=== PATIENT | female | born 1940 | race Caucasian/White ===

== ENCOUNTER 2019-01-19 15:20 | Inpatient (IN) ==
[2019-01-19 17:09] LABS: Basophils % 0.5 % (0.0-0.8); Hematocrit 46.1 VOL% (35.7-47.0); Hemoglobin 15.4 GM/DL (12.0-16.0); Immature Granulocytes % 0.5 %; Immature Granulocytes Absolute 0.02 #; Lymphocytes # 0.4 10*3/uL (1.4-4.0); Lymphocytes % 9.9 % (21.3-54.2); Mean Corpuscular HGB Conc 33.4 GM/DL (32-36); Mean Corpuscular Volume 92.4 FL (87-102); Mean Platelet Volume 11.6 FL (9.6-12.0); Monocytes % 4.3 % (1.7-12.7); Neutrophils % 84.8 % (38.7-73.9); Platelet Count 120 T/CUMM (130-400); Red Blood Count 4.99 MC/CUMM (3.8-5.5); Red Cell Distribution Width 13.4 % (9.3-17.3); White Blood Count 3.8 T/CUMM (4-12)
[2019-01-19 17:31] LABS: Alanine Aminotransferase 96 U/L (13-56); Albumin 3.5 G/DL (3.4-5.0); Alkaline Phosphatase 134 U/L (45-117); Aspartate Amino Transferase 116 U/L (0-37); Blood Urea Nitrogen 61 MG/DL (7-18); Calcium 10.2 MG/DL (8.5-10.1); Glucose 263 MG/DL (74-106); Osmolality,Calculated 295.1 MOS/KG (273-304); Total Protein 7.4 G/DL (6.4-8.3)
[2019-01-19] MEDS ORDERED: SODIUM CHLORIDE 0.9% 500 ML IV STA (17:31)
[2019-01-19] MEDS ORDERED: ENOXAPARIN 80 MG/0.8 ML SYRINGE SUBCUT STA (17:55)
[2019-01-19] MEDS ORDERED: SODIUM CHLORIDE 0.9% 1,000 ML IV STA (17:55)
[2019-01-19] MEDS ORDERED: ASPIRIN CHEW 81 MG TABLET PO STA (17:55)
[2019-01-19] MEDS ORDERED: cefTRIAXone 1,000 MG in SODIUM CHLORIDE 0.9% 100 ML IV STA (17:56)
[2019-01-19] MEDS ORDERED: MAGNESIUM SULF RIDER 4 GM in PREMIX 1 EACH IV PRN (18:36)
[2019-01-19] MEDS ORDERED: INSULIN LISPRO 100 UNIT/ML SUBCUT ONE (18:36)
[2019-01-19] MEDS ORDERED: POTASSIUM CHLORIDE 20 MEQ TABLET PO PRN (18:36)
[2019-01-19] MEDS ORDERED: HEPARIN 5,000 UNIT/1 ML VIAL IV ONE (18:36)
[2019-01-19] MEDS ORDERED: NITROGLYCERIN SL 0.4 MG TABLET SL PRN (18:36)
[2019-01-19 18:43] LABS: PT Patient Result 11.1 SECS (9.6-12.2)
[2019-01-19 18:56] LABS: Apearance,Urine CLOUDY (Clear); Bacteria,Urine Moderate /HPF (Few); Bilirubin,Urine Negative (Negative); Blood, Urine Small mg/dL (Negative); Glucose,Urine (UA) Negative (Negative); Hyaline Casts,Urine 90 /LPF (0-3); Ketones,Urine Negative (Negative); Mucus,Urine Occasional /LPF (Occasional); Nitrite,Urine Negative (Negative); Protein,Urine 30 MG/DL; RBC,Urine 4 /HPF (0-4); Squamous Epithelial Cell,Urine Occasional /HPF (0-10); Urine Color Amber (Yellow); Urine Specific Gravity 1.017 (1.001-1.035); WBC,Urine 46 /HPF (0-6)
[2019-01-19] MEDS: INSULIN LISPRO 100 UNIT/ML SUBCUT SCH (21:46)
[2019-01-19] MEDS: SODIUM CHLORIDE 0.9% 1,000 ML IV SCH (22:13)
[2019-01-19] MEDS: ATORVASTATIN 20 MG TABLET PO SCH (22:14)
[2019-01-20 01:21] LABS: Basophils % 0.3 % (0.0-0.8); Eosinophils % 0.3 % (0.00-10.9); Hematocrit 37.3 VOL% (35.7-47.0); Hemoglobin 12.2 GM/DL (12.0-16.0); Immature Granulocytes % 0.5 %; Immature Granulocytes Absolute 0.02 #; Lymphocytes # 0.5 10*3/uL (1.4-4.0); Mean Corpuscular HGB Conc 32.7 GM/DL (32-36); Mean Corpuscular Volume 92.8 FL (87-102); Mean Platelet Volume 11.3 FL (9.6-12.0); Neutrophils % 76.9 % (38.7-73.9); Platelet Count 101 T/CUMM (130-400); Red Blood Count 4.02 MC/CUMM (3.8-5.5); Red Cell Distribution Width 13.3 % (9.3-17.3); White Blood Count 3.7 T/CUMM (4-12)
[2019-01-20 02:06] LABS: Albumin 2.7 G/DL (3.4-5.0); Bilirubin,Total 0.6 MG/DL (0.2-1.0); Calcium 8.5 MG/DL (8.5-10.1); Osmolality,Calculated 296.4 MOS/KG (273-304); Risk Ratio 5.24; Thyroid Stimulating Hormone 1.02 uIU/ml (0.358-3.74); Total Protein 5.6 G/DL (6.4-8.3)
[2019-01-20] MEDS: SODIUM CHLORIDE 0.9% 1,000 ML IV SCH ×4 (06:07→21:59)
[2019-01-20] MEDS ORDERED: LISINOPRIL 20 MG TABLET PO SCH (09:00)
[2019-01-20] MEDS: INSULIN LISPRO 100 UNIT/ML SUBCUT SCH ×4 (09:24→20:11)
[2019-01-20] MEDS: PANTOPRAZOLE 40 MG TABLET PO SCH (09:25)
[2019-01-20] MEDS: POTASSIUM CHLORIDE 20 MEQ TABLET PO PRN ×3 (09:25→13:48)
[2019-01-20] MEDS: LEVOTHYROXINE 100 MCG TABLET PO SCH (09:26)
[2019-01-20] MEDS ORDERED: POTASSIUM CHLORIDE 20 MEQ TABLET PO ONE (14:38)
[2019-01-20 15:27] LABS: CKMB % 5.5 %
[2019-01-20 15:28] LABS: Troponin I 0.969 NG/ML (0.00-0.045)
[2019-01-20] MEDS: ASPIRIN EC 81 MG TABLET PO SCH (16:52)
[2019-01-20] MEDS: ONDANSETRON 4 MG/2 ML VIAL IV PRN (19:25)
[2019-01-20] MEDS: ACETAMINOPHEN 325 MG TABLET PO PRN (20:10)
[2019-01-20] MEDS: hydrALAZINE 25 MG TABLET PO SCH (20:10)
[2019-01-20] MEDS: ATORVASTATIN 20 MG TABLET PO SCH (20:11)
[2019-01-21] MEDS: cefTRIAXone 1,000 MG in SYRINGE 1 EACH IV SCH (01:41)
[2019-01-21 04:24] LABS: Basophils % 0.5 % (0.0-0.8); Eosinophils % 0.3 % (0.00-10.9); Hematocrit 36.2 VOL% (35.7-47.0); Hemoglobin 11.6 GM/DL (12.0-16.0); Immature Granulocytes % 0.5 %; Immature Granulocytes Absolute 0.02 #; Lymphocytes % 27.2 % (21.3-54.2); Mean Corpuscular Volume 95.3 FL (87-102); Mean Platelet Volume 12.1 FL (9.6-12.0); Monocytes % 10.1 % (1.7-12.7); Neutrophils % 61.4 % (38.7-73.9); Platelet Count 77 T/CUMM (130-400); Red Cell Distribution Width 13.8 % (9.3-17.3); White Blood Count 3.7 T/CUMM (4-12)
[2019-01-21 04:59] LABS: Band Neutrophils 13 % (0-10); Eosinophils 1 % (0-10); Lymphocytes 28 % (20-55); Segmented Neutrophils 51 % (50-85); Total Cells Counted 100
[2019-01-21 05:00] LABS: Anisocytosis 1+; Platelet Estimate Decreased; Target Cells Few
[2019-01-21 05:01] LABS: Albumin 2.2 G/DL (3.4-5.0); Bilirubin,Total 0.5 MG/DL (0.2-1.0); Calcium 8.5 MG/DL (8.5-10.1); Osmolality,Calculated 287.3 MOS/KG (273-304); Total Protein 5.2 G/DL (6.4-8.3)
[2019-01-21] MEDS: SODIUM CHLORIDE 0.9% 1,000 ML IV SCH ×2 (06:12→11:50)
[2019-01-21] MEDS: MAGNESIUM SULF RIDER 2 GM in PREMIX 1 EACH IV PRN (06:13)
[2019-01-21] MEDS: LEVOTHYROXINE 100 MCG TABLET PO SCH (06:13)
[2019-01-21] MEDS: ASPIRIN EC 81 MG TABLET PO SCH ×2 (07:43→08:23)
[2019-01-21] MEDS: PANTOPRAZOLE 40 MG TABLET PO SCH ×2 (07:43→08:23)
[2019-01-21] MEDS: INSULIN LISPRO 100 UNIT/ML SUBCUT SCH ×4 (07:43→21:09)
[2019-01-21] MEDS: hydrALAZINE 25 MG TABLET PO SCH ×3 (07:43→21:02)
[2019-01-21] MEDS: ACETAMINOPHEN 325 MG TABLET PO PRN ×3 (07:46→20:58)
[2019-01-21] MEDS: AZITHROMYCIN INJ 500 MG in SODIUM CHLORIDE 0.9% 250 ML IV SCH (10:57)
[2019-01-21] MEDS: ENOXAPARIN 80 MG/0.8 ML SYRINGE SUBCUT SCH ×2 (12:46→20:59)
[2019-01-21] MEDS ORDERED: LACTULOSE 20 GM/30 ML UDCUP PO PRN (12:53)
[2019-01-21] MEDS: ATORVASTATIN 20 MG TABLET PO SCH (20:58)
[2019-01-22] MEDS: SODIUM CHLORIDE 0.9% 1,000 ML IV SCH ×2 (00:07→17:34)
[2019-01-22] MEDS: cefTRIAXone 1,000 MG in SYRINGE 1 EACH IV SCH (00:08)
[2019-01-22] MEDS ORDERED: METOPROLOL TARTRATE 5 MG/5 ML VIAL IV ONE ×2 (04:12→04:13)
[2019-01-22] MEDS: ONDANSETRON 4 MG/2 ML VIAL IV PRN (05:05)
[2019-01-22 05:25] LABS: Basophils % 0.6 % (0.0-0.8); Eosinophils % 0.3 % (0.00-10.9); Hemoglobin 12.5 GM/DL (12.0-16.0); Immature Granulocytes % 0.7 %; Immature Granulocytes Absolute 0.05 #; Lymphocytes # 2.1 10*3/uL (1.4-4.0); Lymphocytes % 29.5 % (21.3-54.2); Mean Corpuscular HGB Conc 32.9 GM/DL (32-36); Monocytes % 12.1 % (1.7-12.7); Neutrophils % 56.8 % (38.7-73.9); Platelet Count 74 T/CUMM (130-400); Red Blood Count 4.13 MC/CUMM (3.8-5.5); Red Cell Distribution Width 13.7 % (9.3-17.3)
[2019-01-22] MEDS: LEVOTHYROXINE 100 MCG TABLET PO SCH (06:00)
[2019-01-22 06:15] LABS: Calcium 8.4 MG/DL (8.5-10.1)
[2019-01-22 06:30] LABS: Albumin 2.2 G/DL (3.4-5.0); Bilirubin,Direct 0.19 MG/DL (0.0-0.20); Bilirubin,Total 0.6 MG/DL (0.2-1.0); Calcium 8.5 MG/DL (8.5-10.1); Total Protein 5.5 G/DL (6.4-8.3)
[2019-01-22 06:45] LABS: Band Neutrophils 7 % (0-10); Lymphocytes 31 % (20-55); Segmented Neutrophils 53 % (50-85); Total Cells Counted 100
[2019-01-22 06:46] LABS: Anisocytosis 1+; Platelet Estimate Decreased
[2019-01-22] MEDS: AZITHROMYCIN INJ 500 MG in SODIUM CHLORIDE 0.9% 250 ML IV SCH ×2 (08:50→10:32)
[2019-01-22] MEDS: hydrALAZINE 25 MG TABLET PO SCH ×2 (08:51→20:04)
[2019-01-22] MEDS: ASPIRIN EC 81 MG TABLET PO SCH (08:51)
[2019-01-22] MEDS: PANTOPRAZOLE 40 MG TABLET PO SCH (08:51)
[2019-01-22] MEDS: ENOXAPARIN 80 MG/0.8 ML SYRINGE SUBCUT SCH ×3 (08:51→21:30)
[2019-01-22] MEDS: INSULIN LISPRO 100 UNIT/ML SUBCUT SCH ×4 (08:59→21:28)
[2019-01-22] MEDS ORDERED: POTASSIUM CHLORIDE RIDER 10 MEQ in PREMIX 1 EACH IV PRN (19:39)
[2019-01-22] MEDS ORDERED: MAGNESIUM SULF RIDER 2 GM in PREMIX 1 EACH IV PRN (19:39)
[2019-01-22] MEDS: ATORVASTATIN 20 MG TABLET PO SCH (20:04)
[2019-01-23] MEDS: cefTRIAXone 1,000 MG in SYRINGE 1 EACH IV SCH (01:27)
[2019-01-23 04:51] LABS: Basophils % 0.5 % (0.0-0.8); Eosinophils # 0.1 10*3/uL (0.0-0.87); Eosinophils % 1.8 % (0.00-10.9); Hematocrit 33.7 VOL% (35.7-47.0); Hemoglobin 11.3 GM/DL (12.0-16.0); Immature Granulocytes % 2.2 %; Immature Granulocytes Absolute 0.12 #; Lymphocytes # 1.6 10*3/uL (1.4-4.0); Lymphocytes % 28.8 % (21.3-54.2); Mean Corpuscular HGB Conc 33.5 GM/DL (32-36); Mean Corpuscular Volume 91.3 FL (87-102); Mean Platelet Volume 11.9 FL (9.6-12.0); Monocytes % 12.9 % (1.7-12.7); Neutrophils % 53.8 % (38.7-73.9); Platelet Count 96 T/CUMM (130-400); Red Blood Count 3.69 MC/CUMM (3.8-5.5); Red Cell Distribution Width 13.3 % (9.3-17.3); White Blood Count 5.6 T/CUMM (4-12)
[2019-01-23 05:04] LABS: Osmolality,Calculated 276.5 MOS/KG (273-304)
[2019-01-23 05:17] LABS: Hypochromasia Slight; Microcytosis Slight
[2019-01-23 05:18] LABS: Platelet Estimate Decreased
[2019-01-23] MEDS: LEVOTHYROXINE 100 MCG TABLET PO SCH ×2 (05:50→06:04)
[2019-01-23] MEDS ORDERED: DIAZEPAM 5 MG TABLET PO ONE (06:00)
[2019-01-23] MEDS ORDERED: diphenhydrAMINE CAP 25 MG CAPSULE PO ONE (06:00)
[2019-01-23] MEDS: POTASSIUM CHLORIDE 20 MEQ TABLET PO PRN (06:31)
[2019-01-23] MEDS: MAGNESIUM SULF RIDER 2 GM in PREMIX 1 EACH IV PRN (06:31)
[2019-01-23] MEDS ORDERED: HEPARIN/NACL 0.9% 2 UNITS/ML 1,000 ML IV ONE (06:46)
[2019-01-23] MEDS ORDERED: MAGNESIUM SULF RIDER 2 GM in PREMIX 1 EACH IV PRN (07:09)
[2019-01-23] MEDS ORDERED: MAGNESIUM SULF RIDER 4 GM in PREMIX 1 EACH IV PRN (07:09)
[2019-01-23] MEDS ORDERED: POTASSIUM CHLORIDE 20 MEQ/15 ML UDCUP PO ONE ×3 (07:15→12:40)
[2019-01-23] MEDS: hydrALAZINE 25 MG TABLET PO SCH ×2 (07:50→21:15)
[2019-01-23] MEDS: PANTOPRAZOLE 40 MG TABLET PO SCH (07:50)
[2019-01-23] MEDS: ASPIRIN EC 81 MG TABLET PO SCH (07:50)
[2019-01-23] MEDS: AZITHROMYCIN 250 MG TABLET PO SCH (07:50)
[2019-01-23] MEDS ORDERED: LIDOCAINE 1%/EPI INJ 20 ML VIAL ONE (08:11)
[2019-01-23] MEDS ORDERED: fentaNYL 100 MCG/2 ML VIAL ONE (08:11)
[2019-01-23] MEDS ORDERED: MIDAZOLAM 2 MG/2 ML VIAL ONE (08:11)
[2019-01-23] MEDS: INSULIN LISPRO 100 UNIT/ML SUBCUT SCH ×4 (08:23→20:53)
[2019-01-23] MEDS ORDERED: ENOXAPARIN 60 MG/0.6 ML SYRINGE ONE (08:51)
[2019-01-23] MEDS ORDERED: HEPARIN/NACL 0.9% 2 UNITS/ML 500 ML IV ONE (08:59)
[2019-01-23] MEDS ORDERED: diphenhydrAMINE 50 MG/1 ML VIAL ONE (09:22)
[2019-01-23] MEDS ORDERED: TICAGRELOR 90 MG TABLET ONE (09:42)
[2019-01-23] MEDS: SODIUM CHLORIDE 0.9% 1,000 ML IV SCH ×2 (10:30→16:14)
[2019-01-23] MEDS: MORPHINE 4 MG/1 ML VIAL IV PRN (10:52)
[2019-01-23] MEDS: ONDANSETRON 4 MG/2 ML VIAL IV PRN ×3 (10:55→19:32)
[2019-01-23] MEDS ORDERED: NITROGLYCERIN DRIP 50 MG/250 ML BOTTLE IV PRN (11:09)
[2019-01-23] MEDS: ENOXAPARIN 80 MG/0.8 ML SYRINGE SUBCUT SCH (16:13)
[2019-01-23] MEDS: ATENOLOL 25 MG TABLET PO SCH (16:23)
[2019-01-23] MEDS: TICAGRELOR 90 MG TABLET PO SCH (21:15)
[2019-01-23] MEDS: ATORVASTATIN 20 MG TABLET PO SCH (21:15)
[2019-01-24] MEDS: SODIUM CHLORIDE 0.9% 1,000 ML IV SCH ×2 (00:52→07:35)
[2019-01-24] MEDS: MORPHINE 4 MG/1 ML VIAL IV PRN ×2 (00:52→23:49)
[2019-01-24] MEDS: cefTRIAXone 1,000 MG in SYRINGE 1 EACH IV SCH (01:10)
[2019-01-24 04:21] LABS: Basophils # 0.1 10*3/uL (0.0-0.2); Basophils % 0.6 % (0.0-0.8); Eosinophils # 0.2 10*3/uL (0.0-0.87); Eosinophils % 1.8 % (0.00-10.9); Hematocrit 35.1 VOL% (35.7-47.0); Hemoglobin 11.6 GM/DL (12.0-16.0); Immature Granulocytes % 4.7 %; Immature Granulocytes Absolute 0.39 #; Lymphocytes # 1.8 10*3/uL (1.4-4.0); Lymphocytes % 21.4 % (21.3-54.2); Mean Corpuscular Volume 93.4 FL (87-102); Mean Platelet Volume 11.9 FL (9.6-12.0); Monocytes % 13.7 % (1.7-12.7); Neutrophils % 57.8 % (38.7-73.9); Platelet Count 166 T/CUMM (130-400); Red Blood Count 3.76 MC/CUMM (3.8-5.5); Red Cell Distribution Width 13.7 % (9.3-17.3); White Blood Count 8.4 T/CUMM (4-12)
[2019-01-24 04:48] LABS: Calcium 8.8 MG/DL (8.5-10.1); Osmolality,Calculated 274.5 MOS/KG (273-304)
[2019-01-24 04:49] LABS: Calcium 8.6 MG/DL (8.5-10.1); Osmolality,Calculated 272.7 MOS/KG (273-304)
[2019-01-24] MEDS: ONDANSETRON 4 MG/2 ML VIAL IV PRN ×2 (06:00→21:36)
[2019-01-24 06:15] LABS: Lymphocytes 19 % (20-55); Metamyelocytes 1 %; Myelocytes 2 %; Segmented Neutrophils 63 % (50-85); Total Cells Counted 100
[2019-01-24 06:16] LABS: Hypochromasia Slight; Microcytosis Slight; Platelet Estimate Adequate
[2019-01-24] MEDS: INSULIN LISPRO 100 UNIT/ML SUBCUT SCH ×4 (07:45→21:42)
[2019-01-24] MEDS: LEVOTHYROXINE 100 MCG TABLET PO SCH (07:55)
[2019-01-24] MEDS ORDERED: MAGNESIUM SULF RIDER 4 GM in PREMIX 1 EACH IV ONE (07:59)
[2019-01-24] MEDS ORDERED: ENOXAPARIN 40 MG/0.4 ML SYRINGE SUBCUT SCH (09:00)
[2019-01-24] MEDS: ASPIRIN EC 81 MG TABLET PO SCH (10:21)
[2019-01-24] MEDS: ISOSORBIDE MONONITRATE 60 MG TABLET PO SCH (10:21)
[2019-01-24] MEDS: POTASSIUM CHLORIDE 20 MEQ TABLET PO PRN (10:21)
[2019-01-24] MEDS: amLODIPine 5 MG TABLET PO SCH (10:22)
[2019-01-24] MEDS: AZITHROMYCIN 250 MG TABLET PO SCH (10:22)
[2019-01-24] MEDS: ATENOLOL 25 MG TABLET PO SCH (10:22)
[2019-01-24] MEDS: PANTOPRAZOLE 40 MG TABLET PO SCH (10:23)
[2019-01-24] MEDS: TICAGRELOR 90 MG TABLET PO SCH ×2 (10:23→21:22)
[2019-01-24] MEDS: hydrALAZINE 25 MG TABLET PO SCH (10:23)
[2019-01-24] MEDS ORDERED: hydrALAZINE 20 MG/1 ML VIAL IV PRN (12:05)
[2019-01-24] MEDS ORDERED: ATORVASTATIN 80 MG TABLET PO SCH (21:00)
[2019-01-25] MEDS: cefTRIAXone 1,000 MG in SYRINGE 1 EACH IV SCH (01:24)
[2019-01-25 05:33] LABS: Basophils # 0.1 10*3/uL (0.0-0.2); Basophils % 0.6 % (0.0-0.8); Eosinophils # 0.2 10*3/uL (0.0-0.87); Eosinophils % 2.8 % (0.00-10.9); Hematocrit 36.1 VOL% (35.7-47.0); Hemoglobin 11.9 GM/DL (12.0-16.0); Immature Granulocytes % 5.6 %; Immature Granulocytes Absolute 0.44 #; Lymphocytes # 1.7 10*3/uL (1.4-4.0); Mean Corpuscular Volume 92.6 FL (87-102); Mean Platelet Volume 11.3 FL (9.6-12.0); Monocytes % 14.7 % (1.7-12.7); Neutrophils % 55.3 % (38.7-73.9); Platelet Count 220 T/CUMM (130-400); Red Cell Distribution Width 13.8 % (9.3-17.3); White Blood Count 7.9 T/CUMM (4-12)
[2019-01-25 06:01] LABS: Eosinophils 5 % (0-10); Hypochromasia 1+; Lymphocytes 28 % (20-55); Microcytosis Slight; Ovalocytes Slight; Platelet Estimate Adequate; Segmented Neutrophils 55 % (50-85); Total Cells Counted 100
[2019-01-25 06:03] LABS: Albumin 2.4 G/DL (3.4-5.0); Bilirubin,Direct 0.24 MG/DL (0.0-0.20); Bilirubin,Indirect 0.4 MG/DL (0.0-1.0); Bilirubin,Total 0.6 MG/DL (0.2-1.0); Calcium 8.8 MG/DL (8.5-10.1); Osmolality,Calculated 273.7 MOS/KG (273-304); Total Protein 5.8 G/DL (6.4-8.3)
[2019-01-25] MEDS: LEVOTHYROXINE 100 MCG TABLET PO SCH (07:37)
[2019-01-25] MEDS: INSULIN LISPRO 100 UNIT/ML SUBCUT SCH ×2 (08:36→12:31)
[2019-01-25] MEDS: AZITHROMYCIN 250 MG TABLET PO SCH (08:36)
[2019-01-25] MEDS: ATENOLOL 25 MG TABLET PO SCH (08:37)
[2019-01-25] MEDS: amLODIPine 5 MG TABLET PO SCH (08:37)
[2019-01-25] MEDS: ISOSORBIDE MONONITRATE 60 MG TABLET PO SCH (08:37)
[2019-01-25] MEDS: PANTOPRAZOLE 40 MG TABLET PO SCH (08:37)
[2019-01-25] MEDS: TICAGRELOR 90 MG TABLET PO SCH (08:37)
[2019-01-25] MEDS: ASPIRIN EC 81 MG TABLET PO SCH (08:37)
[2019-01-25] MEDS ORDERED: SERTRALINE 100 MG TABLET PO SCH (09:00)
[2019-01-25 12:25] VITALS: BP 117/56
[2019-01-26] MEDS ORDERED: LISINOPRIL 20 MG TABLET PO SCH (09:00)
[2019-01-26] MEDS ORDERED: EZETIMIBE 10 MG TABLET PO SCH (09:00)
== END 2019-01-25 13:12 | disposition home or self-care (01) | DRG 246 ==
LOC: N.ED 15:20 → N.EDINP 15:20 → N.TELEN 19:18 → N.CC 01-23 10:51 → N.TELEN 01-24 14:08
PROVIDERS: ADMIT Internal Medicine; ATTEND Internal Medicine
PROC: CLCCHCL (ICD-10-PCS; 2019-01-23 08:45)